=== PATIENT | female | born 2000 | race Caucasian/White ===

== ENCOUNTER 2019-11-19 13:28 | Outpatient (CLI) | payer MEDICAID, SELFPAY ==
--- NOTE | 2019-11-19 | US_ITS ---
WS: [id number] OBSTETRICAL ULTRASOUND COMPLETE HISTORY: SUPERVISION OF NORMAL FIRST IN SECOND TRIMESTER COMPARISON: None available. Single intrauterine gestation in breech presentation. Cervix is Closed and normal length. Cervical length is 3.6 cm. Normal amount of amniotic fluid surrounds the fetus. Placenta: Anterior, no previa or abruption. Placenta grade 0 Heart: 138 BPM. Four chambers are identified. Anatomy: Intracranial structures and spine are normal. Limited spine due to posterior position but no abnormality. kidneys, stomach and urinary bladder are unremarkable. Abdominal wall, thre e-vessel cord and cord insertion site are normal. 4 extremities are present. profile: Unremarkable. Gender: Female. measurements: BPD = 4.6 cm = 20w0d HC = 17.3 cm = 19w6d AC = 14.7 cm = 20w0d FL = 3.2 cm = 20w0d EFW: 325 g g., Measurements are internally concordant. AGA by ultrasound: 20 weeks 0 day JENISE by ultrasound: 04/07/2020 US/US OB >= 14 weeks fetus [id number] IMPRESSION: 1. Single intrauterine gestation of 20 weeks 0 day with an EDC of 04/07/2020. 2. Unremarkable screening survey of anatomy.
== END 2019-11-19 13:29 | disposition home or self-care (01) ==
PROVIDERS: Visit Provider Family Medicine
DX: Z76.89 Persons encountering health services in other specified circumstances (principal)

== ENCOUNTER 2020-01-31 21:30 | Outpatient (CLI) | payer MEDICAID, SELFPAY ==
[2020-01-31 21:54] VITALS: BP 134/79; PULSE 90
[2020-01-31 22:50] VITALS: TEMP 36.9
[2020-01-31 23:06] VITALS: BMI 32.1
[2020-01-31 23:24] LABS: Add Urine Culture? Yes; Bacteria Urine 1+; Bilirubin Urine Neg (NEGATIVE); Blood Urine 3+ (Negative); Glucose Urine UA Norm (Normal); Ketones Urine Negative (Negative); Leukocyte Esterase Urine 2+ (Negative); Nitrate Urine Negative (Negative); Protein Urine 2+ (Negative); RBC Urine 80-100 /hpf (0-2); Specific Gravity, Urine 1.005 (1.005-1.030); Squamous Epithelial Cell Urine 0-4 (0-5); Urine Appearance Cloudy (CLEAR); Urine Color Red (Yellow); Urobilinogen Urine Norm (Negative); pH Urine 7 (5-7)
[2020-01-31] MEDS: cephALEXin 500 mg Capsule PO (23:49)
== END 2020-01-31 23:50 | disposition home or self-care (01) ==
LOC: OPOB 21:32 → OBGYN 21:36
PROVIDERS: Visit Provider Family Medicine
DX: O26.899 Other specified pregnancy related conditions, unspecified trimester (principal); Z3A.00 Weeks of gestation of pregnancy not specified; R31.9 Hematuria, unspecified
CPT/HCPCS: 59025; 81001; 87086; 99211

== ENCOUNTER 2020-04-03 17:28 | Inpatient (IN) | payer MEDICAID, SELFPAY ==
[2020-04-03] VITALS (31 sets, daily range): BP systolic 0–149; BP diastolic 0–90; PULSE 71–107; RESP 15–18; TEMP 36.1–37.2; O2SAT 95–100; BMI 33.6
[2020-04-03] MEDS: ampicillin 2,000 MG in sodium chloride 0.9% (plus) 50 ML 100 MG IV (18:06)
[2020-04-03] MEDS: dextrose 5%-lactated ringers 1,000 ML 125 ML IV (18:07)
[2020-04-03 18:17] LABS: Basophils % 0.2 %; Eosinophils # 0.1 10^3/uL (0.0-0.8); Eosinophils % 0.7 %; Hematocrit 33.5 % (37.0-47.0); Hemoglobin 11.1 g/dL (11.5-15.3); Lymphocytes # 1.9 10^3/uL (1.5-6.5); Mean Corpuscular HGB Conc 33.1 g/dL (30.0-36.0); Mean Corpuscular Hemoglobin 28.8 pg (28.0-34.0); Mean Platelet Volume 11.1 fL (7.4-10.4); Monocytes # 0.9 10^3/uL (0.2-0.9); Monocytes % 7.1 %; Neutrophils # 9.6 10^3/uL (1.8-8.0); Neutrophils % 75.8 %; Nucleated Red Blood Cells % 0 %; Platelet Count 210 10^3/cmm (130-400); Red Blood Count 3.85 10^6/uL (4.1-5.3); Red Cell Distribution Width 13.1 % (12.1-15.1); White Blood Count 12.7 10^3/uL (4.5-13.0)
[2020-04-03] MEDS: oxytocin 30 UNIT/500 ML BAG IV (19:08)
[2020-04-03] MEDS: lactated ringers 1,000 ML 999 ML IV (19:36)
--- NOTE | 2020-04-03 19:40 | P.ANESASSM_ITS ---
Pre-Anesthetic Assessment Pre-Anesthetic Assessment: Height/Weight: Height 1.68 m Weight 94.555 kg Temp Pulse Resp BP 97.7 F 74 18 117/73 04/03/20 19:00 04/03/20 19:36 04/03/20 18:00 04/03/20 19:36 Preop Diagnosis: IUP Proposed Procedure: epidural Familial anesthetic complications: Epidural didn't work (was unilateral and wore off) Was Beta Erica taken within 24 hours: N/A Last intake: 1700 Chicken and sprite Social: Social History: Tobacco and No alcohol Exam: Pre-Anes Outpt Exam: alert, oriented x 3, clear to auscultation bilaterally and regular rate & rhythm Airway: Cervical ROM: WNL MP: 2 Dentition: Full Pulmonary: Pulmonary: None reported GI: GI: GERD Anesthetic Plan: ASA status: 2 Anesthesia: Regional (specify below) Risk of > 500 ml blood loss (7ml/kg in children): Yes, adequate IV access and fluids planned Meds/Allergies Current Medications: Current Medications Generic Name Dose Route Start Last Admin Trade Name Shiv PRN Reason Stop Dose Admin Dextrose/Lactated Ringer's 1,000 mls @ 125 m ls/hr 04/03/20 17:45 04/03/20 18:07 Dextrose 5%-Lact ated Ringers IV 125 mls/hr .Q8H ANITA Administration Ampicillin Sodium 2,000 mg/ 50 mls @ 100 mls/ hr 04/03/20 17:45 04/03/20 18:06 Sodium Chloride IV 100 mls/hr ONCE ANITA Administration Protocol Oxytocin 30 unit in 500 ml s @ 1 mls/hr 04/03/20 18:30 04/03/20 19:08 Pitocin IV 1 milliunit/min .Q24H ANITA 1 mls/hr Administration Protocol 1 MILLIUNIT/MIN PFSH Anesthesia Female Reproductive History: : 2 Data Anesthesia CBC & Chem 7: 04/03/20 17:45 Other Labs: Laboratory Results - last 48 hr 04/03/20 17:45 WBC 12.7 RBC 3.85 L Hgb 11.1 L Hct 33.5 L MCV 87.0 MCH 28.8 MCHC 33.1 RDW 13.1 Plt Count 210 MPV 11.1 H Neut % (Auto) 75.8 Lymph % (Auto) 15.0 [place] % (Auto) 7.1 Eos % (Auto) 0.7 Baso % (Auto) 0.2 Neut # (Auto) 9.6 H Lymph # (Auto) 1.9 [place] # (Auto) 0.9 Eos # (Auto) 0.1 Baso # (Auto) 0.0 Nucleated RBC % (auto) 0 Nucleated RBCs # 0.0 Cardiac Studies: No Data to Display
--- NOTE | 2020-04-03 21:06 | PC.NURSE ---
Roxana cornelius, RN calling anesthesia and warehouse examiner advising we are coming down to main OR for STAT emergency due to prolapsed cord, our OB OR is currently dirty from previous case.
[2020-04-03] MEDS: ketorolac 30 mg/mL INJ IVP (22:25)
--- NOTE | 2020-04-03 23:03 | P.OP_ITS ---
Operative Report Date of procedure: April 03, 2020 Pre-op Diagnosis: 19-year-old 2 at 39 weeks estimated gestational age with cord prolapse Post-op diagnosis: same Procedure Done: Stat low-transverse section Specimens removed/disposition: 1. Female with a weight of 6 pounds 2 ounces and Apgars of 7 and 9 Pathology: none sent Surgeon: Dell Hammonds Anesthesia: General Estimated blood loss (mL): 1,200 Complications: None Condition: stable Disposition: floor (OB) Brief History: Referred history and physical Procedure: The patient was brought back to the operating room where she was prepped and draped in usual sterile fashion. She was then placed under general anesthesia. We were ready to immediately start cutting as soon as anesthesia was initiated. A lower transverse skin incision was then made with a #10 blade. I then dissected down to the underlying subcutaneous tissue until arriving at the prerectal fascia. The fascia was then nicked with the scalpel bilaterally. The fascial incisions were then carried laterally with Miller scissors. Attention was then turned to the superior aspect of the incision which was grasped with kochers and tented up away from the underlying rectus abdominis muscles. The muscles were then dissected away from the fascia man ually, and later with Miller scissors. There was enough space to enter the peritoneum so I did not dissect the fascia away from the rectus abdominis muscles on the inferior side of the incision. The rectus abdominis muscles were then spread manually. The peritoneum was entered manually. Excellent visualization of the uterus was noted. A lower transverse uterine incision was then made with a #10 blade. Upon arriving at the intrauterine cavity, the uterine incision was then extended manually. The infant was noted to be in vertex position. The baby was delivered without difficulty. After delivery of the head, the mouth and nose were suctioned at the site of the incision. There was no meconium. There was no nuchal cord. The remainder of the body was then delivered and placed on the abdomen. The cord was cut and clamped. The baby was then handed to the waiting nurse. The placenta was removed intact. The uterus was externalized. The intrauterine cavity was cleansed of any remaining debris. The uterine incision was reapproximated in 2 layers. The first layer was performed with 0 Vicryl in a running locked stitch. The second layer was an imbricating stitch also using 0 Vicryl. The uterus was replaced into the abdomen. The peritoneum was then irrigated with warm saline. I reexamined the uterine incision and found it to be hemostatic. The rectus abdominis muscles were then reapproximated using 0 Vicryl in a running stitch. The fascia was then reapproximated using 0 Vicryl in running stitch. The subcutaneous tissue was then reapproximated using 0 Vicryl in a running stitch. The skin was reapproximated using 4-0 Vicryl in a running subcuticular stitch.. The strips were placed using benzoin A sterile dressing was placed. All counts were correct x2. Both the mother and baby were in stable condition.
--- NOTE | 2020-04-03 23:16 | PM.OBGYHP ---
Providers/Chief Complaint Admitting Physician: Dell Hammonds MD Primary Care Provider: Dell Hammonds MD Chief Complaint: LEAKING FLUID HPI RN WELLNESS History of Present Illness Jena Perea is a 19 year old 2 para 1-0-0-1 female at 39 weeks and 4 days estimated gestational age who presented to the hospital with spontaneous rupture of membranes. Initially she was found to be about 3 cm dilated and 70% effaced. She was found to be grossly ruptured. She was placed on Pitocin. And she had a long deceleration. After stopping the Pitocin the baby once again had moderate variability with accelerations. Later the baby had a deceleration, and after checking the nurses noted that there was a cord prolapse. As result I was contacted, and a stat was called. The OR upstairs was being used, so we went to the downstairs OR. The patient's had otherwise been fairly unremarkable. Her labs have been within normal limits. Her blood type was a positive. Her hepatitis C hepatitis B and HIV were all negative. Present Details : 2 Para: 1 Labs Rubella: Immune RPR: Negative GBS: Positive Review of Systems General: Reports: 10 or more systems reviewed and unremarkable except in HPI and below and Other (I was unable to obtain a review of systems until after the since she was anesthetized soon as I entered the OR.) Const: Reports: fatigue; Denies: fever(s) Eyes: Denies: change in vision Card: Denies: chest pain [place]/Lymph: Denies: easy bruising Medications/Allergies Home Medications Medication Instructions Recorded Confirmed Last Taken Type Vitamin 1 tab PO DAILY 01/31/20 04/03/20 04/03/20 10:00 History 1 TAB fluoxetine 10 mg PO DAILY 04/03/20 04/03/20 04/03/20 10:00 History 10 MG ibuprofen 800 mg PO TID #30 tab 04/05/20 Unknown Rx oxycodone-acetaminophen 1 - 2 tab PO Q6H PRN #28 tab 04/05/20 Unknown Rx oxycodone-acetaminophen [Percocet] 1 tab PO Q6H PRN #20 tab 04/05/20 Unknown Rx Allergies Allergy/AdvReac Type Severity Reaction Status Date / Time No Known Allergies Allergy Verified 02/01/20 03:00 History History Other History: The patient had a previous spontaneous vaginal delivery without complications in 2017 Vitals/I&O/Wt Last Vital Signs Temp 97.7 F 04/03/20 19:00 Pulse 107 H 04/03/20 21:05 Resp 18 04/03/20 18:00 BP 149/90 04/03/20 21:05 04/03/20 04/03/20 04/04/20 14:59 22:59 06:59 Intake Total 50.567 / 50.567 Balance 50.567 / 50.567 Weight last 48 hrs Weight 208 lb 7.337 oz Physical Exam Narrative: EXAM NARRATIVE: The patient was examined post Const: COMMON NORMALS: alert HENMT: COMMON NORMALS: moist oral mucous membranes HEAD & SCALP: normal to inspection Chest: COMMONS NORMALS: normal inspection of the chest Resp: AUSCULTATION: clear to auscultation bilaterally Cardio: COMMON NORMALS: regular rate and regular rhythm RATE: regular rate RHYTHM: regular rhythm GI: INSPECTION: Yes normal to inspection Extremity: COMMON NORMALS: normal to inspection GENERAL: Yes edema (Trace) Neuro: COMMON NORMALS: patient oriented x3, moves all extremities and no sensory deficits noted SENSORIUM/ORIENTATION: Yes alert Psych: COMMON NORMALS: mental status grossly normal Skin: COMMON NORMALS: no rashes or lesions noted GENERAL SKIN EXAM: no rashes or lesions noted Data : 04/04/20 10:25 A&P Assessment and plan (1) 39 weeks gestation of : Status: Resolved (2) Umbilical cord prolapse: Status: Resolved Attestations Medical Necessity Statement*: I anticipate the patient will require routine post care. Coding Level of Care Code Acute Bath Mix Operator for [facility] [place] Fwd Exam Comprehensive Diagnoses 39 weeks gestation of Z3A.39 Umbilical cord prolapse O69.0XX0
[2020-04-04] VITALS (13 sets, daily range): BP systolic 95–119; BP diastolic 59–76; PULSE 69–98; RESP 15–18; TEMP 36.7–36.8; O2SAT 93–99
[2020-04-04] MEDS: ketorolac 30 mg/mL INJ IVP ×3 (06:23→18:22)
--- NOTE | 2020-04-04 07:07 | P.PN_ITS ---
FLEET ADMINISTRATOR Subjective Subjective: Interval history: The patient is doing well. Her bleeding has been within normal limits. Her pain is been adequately controlled. There have been no concerns. Labor: Station: -2 Amniotic Membrane Status: Leaking Monitor Mode: External Contraction Pattern: Irregular Status: Category ll Vitals/I&O/Wt Last Vital Signs Temp 98.1 F 04/04/20 03:15 Pulse 90 04/04/20 06:32 Resp 16 04/04/20 06:32 BP 108/67 04/04/20 06:32 Pulse Ox 96 04/04/20 06:32 04/03/20 04/04/20 04/04/20 22:59 06:59 14:59 Intake Total 248.484 / 786.320 5738 / 2548.484 Output Total 200 / 200 1750 / 1950 Balance 48.484 / 48.484 550 / 598.484 Weight last 48 hrs Weight 208 lb 7.337 oz Physical Exam Narrative: EXAM NARRATIVE: She is in no acute distress Lungs are clear auscultation bilaterally Her heart has a regular rate and rhythm Her fundus is below the umbilicus and firm Her dressing is clean, dry and intact Her extremities have trace edema Data : 04/03/20 17:45 Attestations Medical Necessity Statement*: Routine and post care Coding Level of Care Code Acute Cytotechnologist/Histotechnologist for Haritha Foster
[2020-04-04] MEDS: dextrose 5%-lactated ringers 1,000 ML 125 ML IV (08:00)
[2020-04-04] MEDS: prenatal vitamin Capsule 1 CAP PO (08:30)
[2020-04-04] MEDS: docusate sodium 100 mg Capsule PO ×2 (08:30→18:22)
[2020-04-04] MEDS: ferrous sulfate EC 325 mg Tablet PO ×2 (08:30→18:25)
[2020-04-04] MEDS: HYDROcodone-acetaminophen 5-325 mg Tablet PO ×3 (08:55→22:22)
[2020-04-04] MEDS: fluoxetine 10 mg Capsule PO (08:56)
[2020-04-04] MEDS: sodium chloride 0.9% 500 ML 999 ML IV (09:06)
[2020-04-04 10:36] LABS: Hematocrit 26.6 % (37.0-47.0); Hemoglobin 8.3 g/dL (11.5-15.3); Mean Corpuscular HGB Conc 31.2 g/dL (30.0-36.0); Mean Corpuscular Hemoglobin 28.1 pg (28.0-34.0); Mean Corpuscular Volume 90.2 fL (81-99); Mean Platelet Volume 10.6 fL (7.4-10.4); Platelet Count 172 10^3/cmm (130-400); Red Blood Count 2.95 10^6/uL (4.1-5.3); Red Cell Distribution Width 13.3 % (12.1-15.1); White Blood Count 13.8 10^3/uL (4.5-13.0)
--- NOTE | 2020-04-04 16:40 | PC.NURSE ---
Redd catheter removed at this time. 10 mL removed from redd bulb, pt tolerated well. Catheter intact.
[2020-04-05 04:00] VITALS: BP 100/66; PULSE 82; RESP 16
[2020-04-05] MEDS: HYDROcodone-acetaminophen 5-325 mg Tablet PO (04:40)
[2020-04-05 08:37] VITALS: RESP 22
[2020-04-05] MEDS: fluoxetine 10 mg Capsule PO (08:37)
[2020-04-05] MEDS: oxyCODONE-APAP 5-325 mg Tablet PO (08:37)
[2020-04-05] MEDS: prenatal vitamin Capsule 1 CAP PO (08:38)
[2020-04-05] MEDS: docusate sodium 100 mg Capsule PO (08:38)
[2020-04-05] MEDS: ferrous sulfate EC 325 mg Tablet PO (08:38)
[2020-04-05] MEDS: dextrose 5%-lactated ringers 1,000 ML 125 ML IV (08:44)
[2020-04-05 09:57] VITALS: BP 116/70; PULSE 86; RESP 16; TEMP 36.6; O2SAT 98
[2020-04-05 13:30] VITALS: BP 117/73; PULSE 86; RESP 16; TEMP 36.9; O2SAT 98
[2020-04-05 13:40] VITALS: BP 117/73; PULSE 86; RESP 16; TEMP 36.9; O2SAT 98
--- NOTE | 2020-04-06 07:38 | P.DS_ITS ---
Discharge Providers RUBBER BALL FINISHER Date of Admission: 04/03/20 17:28 Date of Discharge: 04/05/20 Attending Provider at Admission: Dell Hammonds MD Attending Provider at Discharge: Dell Hammonds MD Primary Care Provider: Dell Hammonds MD Diagnoses at Discharge Discharge Diagnosis (1) 39 weeks gestation of : Status: Resolved (2) Umbilical cord prolapse: Status: Resolved Reason for Visit Reason for Visit: LEAKING FLUID Hospital Course Hospital Course: The patient presented to the hospital at 39 weeks estimated gestational age with spontaneous rupture of membranes. During labor process, she was checked and found to have a prolapsed cord. As result a stat section was performed. Her course was also unremarkable. Her bleeding was within normal limits. Her pain was well controlled. She passed gas, and tolerated diet well. Information Peripartum Data: Infant Delivery Method: Section Physical Exam Narrative: EXAM NARRATIVE: She is in no acute distress Lungs are clear auscultation bilaterally Her heart has a regular rate and rhythm Her fundus is below the umbilicus and firm Her dressing is clean, dry and intact Her extremities have trace edema Urinary Catheter Management^: [place]: Cath Placed During This Visit: yes, but has since been removed by the nurse Reason for Continuing Indwelling Catheter: Required Immobilization for Trauma or Surgery or Anesthesia Urinary Catheter Date of Insertion: 04/03/20 Urinary Catheter Time of Insertion: 22:08 Date Urinary Catheter Removed: 04/04/20 Time Urinary Catheter Discontinued: 16:40 Discharge Data Vitals: Last Vital Signs Temp 98.4 F 04/05/20 13:40 Pulse 86 04/05/20 13:40 Resp 16 04/05/20 13:40 BP 117/73 04/05/20 13:40 Pulse Ox 98 04/05/20 13:40 Discharge Plan Discharge Patient Disposition: Home, Self-Care Condition: Stable Prescriptions: New oxycodone-acetaminophen 5-325 mg Tablet 1 - 2 tab PO Q6H PRN (Reason: Moderate To Severe Pain) Qty: 28 RF: 0 Percocet 5-325 mg tablet 1 tab PO Q6H PRN (Reason: pain) Qty: 20 RF: 0 ibuprofen 800 mg tablet 800 mg PO TID Qty: 30 RF: 0 Continued fluoxetine 10 mg tablet 10 mg PO DAILY RF: 0 Vitamin 27 mg iron- 800 mcg Tablet 1 tab PO DAILY RF: 0 Discharge Orders: Discharge Order (Routine); Ordered 04/05/20 Ordered By: Dell Hammonds Referrals: Dell Hammonds MD [Primary Care Provider] - 04/07/20 8:45 am (* Your incision check is on 04/07/2020 at 8:45am. ) Discharge Diet: Usual diet Discharge Activity: Limit activity as instructed Patient Instructions: Ibuprofen (By mouth), Oxycodone/Acetaminophen (By mouth), OB Discharge Report, OB Food/Drug Interaction Guide, OB Home Care, OB Proud Parent Packet, OB Vaginal Deliveries Discharge Date/Time: 04/05/20 13:40 Discharge Attestations RUBBER BALL FINISHER Time Spent in Discharge Care*: less than 30 min Coding Level of Care Code Acute Eyeletter for Chg Fwd Diagnoses 39 weeks gestation of Z3A.39 Umbilical cord prolapse O69.0XX0
== END 2020-04-05 13:40 | disposition home or self-care (01) | DRG 788 ==
PROVIDERS: Admitting Provider Family Medicine; PCP Family Medicine; Visit Provider Family Medicine
PROC: 10D00Z1 Extraction of Products of Conception, Low, Open Approach (ICD-10-PCS; CPT 59514; principal; 2020-04-03 21:15)
DX: O42.02 Full-term premature rupture of membranes, onset of labor within 24 hours of rupture (principal); O69.0XX0 Labor and delivery complicated by prolapse of cord, not applicable or unspecified; Z3A.39 39 weeks gestation of pregnancy; Z37.0 Single live birth; O76 Abnormality in fetal heart rate and rhythm complicating labor and delivery
CPT/HCPCS: 12345; 36415; 51702; 59025; 59409; 83986; 85025; 85027; 96374; 96375; 99211; G0378; G0379; J0290; J1885; J2270; J2590; J2704; J3010; J7040

== ENCOUNTER 2020-04-12 05:27 | Emergency (ER) | payer MEDICAID, SELFPAY ==
[2020-04-12 05:38] VITALS: BP 110/71; PULSE 94; RESP 16; TEMP 37.1; O2SAT 97; BMI 30.7
--- NOTE | 2020-04-12 05:52 | CTR_ITS ---
PROCEDURE INFORMATION: Exam: CT Abdomen And Pelvis With Contrast Exam date and time: 04/12/2020 6:15 AM Age: 19 years old Clinical indication: Prior surgery; Surgery date: <1 month; Patient HX: Drainage from incision this am, 8 days ago; Additional info: Drainage from c section TECHNIQUE: Imaging protocol: Computed tomography of the abdomen and pelvis with intravenous contrast. Radiation optimization: All CT scans at this facility use at least one of these dose optimization techniques: automated exposure control; mA and/or kV adjustment per patient size (includes targeted exams where dose is matched to clinical indication); or iterative reconstruction. Contrast material: OMNIPAQUE 300; Contrast volume: 95 ml; Contrast route: INTRAVENOUS (IV); COMPARISON: No relevant prior studies available. RADIATION DOSE METRICS: Total DLP (mGy-cm): 1469.17 FINDINGS: Pleural space: Trace basilar airspace disease and small right pleural effusion. Liver: No focal hepatic mass. Gallbladder and bile ducts: No cholelithiasis or biliary ductal dilatation. Pancreas: No pancreatic mass or ductal dilatation. Spleen: Granulomata in the enlarged spleen measuring 13.2 cm in length. Adrenals: Unremarkable adrenals. Kidneys and ureters: Normal renal morphology. No hydronephrosis. Stomach and bowel: No significant small bowel dilatation. Prominent stool. Diverticula, without pericolonic inflammation. Appendix: No acute appendicitis. Intraperitoneal space: Trace fluid in the cul-de-sac. Vasculature: Normal caliber of the abdominal aorta. Lymph nodes: Reactive inguinal lymph nodes. Bladder: Normal bladder morphology. Reproductive: Indwelling tampon. Enlarged uterus with a small focus of endometrial air. Bones/joints: Schmorl's nodes prior Soft tissues: Skin thickening, subcutaneous emphysema, and prominent infiltration of subcutaneous fat in the anterior pelvis, consistent with cellulitis in the appropriate clinical setting. CT/CT abdomen pelvis w con* [id number] IMPRESSION: 1. Skin thickening, subcutaneous emphysema, and prominent infiltration of subcutaneous fat in the anterior pelvis, consistent with cellulitis in the appropriate clinical setting. 2. Additional findings as described above. Radiation Dose CTDIVOL = (mGy): DLP = 1469.17 (mGy-cm)
--- NOTE | 2020-04-12 05:54 | ED_ITS ---
HPI - General Adult General: Chief complaint: General Medical Stated complaint: incision issues Time Seen by Provider: 04/12/20 05:51 Source: patient Mode of arrival: ambulatory Limitations: no limitations History of Present Illness: HPI narrative: 19-year-old female who had a C- section 8 days ago states she has had large amount of drainage that is purulent from the incision. States it is painful and is sharp in nature and rates it a 6 out of 10. She denies any fever. She denies any worsening or improving factors. She has not seen her Associated symptoms: Deny chest pain, dyspnea, headache(s) or rash Review of Systems Const: Denies: fever(s), chills, body aches or change in appetite Eyes: Denies: blurry vision or eye discomfort ENMT: Denies: throat pain or dental pain Card: Denies: chest pain Resp: Denies: dyspnea GI: Reports: abdominal pain : Denies: dysuria Musc: Denies: neck pain or back pain Skin/Breast: Denies: rash Neuro: Denies: headache(s) Psych: Denies: depression Ded[place]/Lymph: Denies: easy bruising All/Imm: Denies: urticaria PFSH ED PFSH: Social History Smoking and tobacco status: current every day smoker Physical Exam Const: COMMON NORMALS: no acute distress, patient oriented x3 and healthy appearing HENMT: COMMON NORMALS: normocephalic and atraumatic HEAD & SCALP: normocephalic and atraumatic Eye: COMMON NORMALS: Equal, round and reactive pupils present and EOMs intact bilaterally PUPIL: Yes Equal, round and reactive pupils present Neck/C-Spine: COMMON NORMALS: full ROM and supple Chest: COMMONS NORMALS: normal inspection of the chest and normal palpation of entire chest wall Resp: COMMON NORMALS: normal respiratory effort, No retractions, No use of accessory muscles and clear to auscultation bilaterally AUSCULTATION: clear to auscultation bilaterally Cardio: COMMON NORMALS: regular rate, regular rhythm and No murmurs present (Cardio) RATE: regular rate RHYTHM: regular rhythm GI: COMMON NORMALS: Soft to palpation and no masses PALPATION: Yes Soft to palpation OTHER: Patient has purulent drainage from scar with tenderness. Extremity: COMMON NORMALS: normal to inspection and full ROM Neuro: COMMON NORMALS: patient oriented x3, moves all extremities and no focal motor deficits Psych: COMMON NORMALS: mental status grossly normal, Normal thought process present and cooperative THOUGHT PROCESS: Normal thought process present Skin: COMMON NORMALS: no rashes or lesions noted and no wounds GENERAL SKIN EXAM: no rashes or lesions noted Course Vital Signs: Vital signs: Vital Signs Temperature 98.7 F 04/12/20 05:38 Pulse Rate 74 04/12/20 07:28 Respiratory Rate 16 04/12/20 06:08 Blood Pressure 118/74 04/12/20 07:28 Pulse Oximetry 98 04/12/20 07:28 MDM - General Adult MDM Narrative: Medical decision making narrative: Love presents here with drainage from her incision site and CT showing cellulitis. Patient's white cell count here is normal. Patient given IV vancomycin and I spoke to Dr. Hammonds who is going to see patient tomorrow. Will place patient on Keflex and she is to return to ER if she has any worsening. Patient understands and agrees to the plan. Lab Data: Labs: Lab Results 04/12/20 04/12/20 Range/Units 06:00 06:00 WBC 11.9 (4.5-13.0) 10^3/ uL RBC 2.71 L (4.1-5.3) 10^6/u L Hgb 7.5 L (11.5-15.3) g/dL Hct 24.0 L (37.0-47.0) % MCV 88.6 (81-99) fL MCH 27.7 L (28.0-34.0) pg MCHC 31.3 (30.0-36.0) g/dL RDW 13.3 (12.1-15.1) % Plt Count 448 H (130-400) 10^3/c mm MPV 9.4 (7.4-10.4) fL Neut % (Auto) 75.6 % Lymph % (Auto) 13.9 % [place] % (Auto) 7.1 % Eos % (Auto) 1.9 % Baso % (Auto) 0.2 % Neut # (Auto) 9.0 H (1.8-8.0) 10^3/u L Lymph # (Auto) 1.7 (1.5-6.5) 10^3/u L [place] # (Auto) 0.9 (0.2-0.9) 10^3/u L Eos # (Auto) 0.2 (0.0-0.8) 10^3/u L Baso # (Auto) 0.0 (0.0-0.1) 10^3/u L Nucleated RBC % (a uto) 0.2 % Nucleated RBCs # 0.0 /100WBC Sodium 135 L (136-145) mmol/L Potassium 4.0 (3.5-5.1) mmol/L Chloride 97 L (98-107) mmol/L Carbon Dioxide 24 (22-29) mmol/L Anion Gap 18.0 (5-19) BUN 11 (6-20) mg/dL Creatinine 0.6 (0.5-0.9) mg/dL GFR Calculation 127.5 (90-130) mL/min Glucose 90 (65-115) mg/dL Calculated Osmolal ity 276 L (285-295) mOsm/k g Calcium 8.6 (8.5-10.5) mg/dL Total Bilirubin 0.2 (0.15-1.2) mg/dL AST 16 (0-32) U/L ALT 12 (0-33) U/L Alkaline Phosphata se 96 (35-105) IU/L Total Protein 6.3 L (6.6-8.7) g/dL Albumin 2.8 L (3.5-5.2) g/dL Globulin 3.5 (1.3-4.6) g/dL Imaging Data^: CT Abd/Pel: Attestation: I personally reviewed and interpreted this imaging study as follows: Radiologist's impression: This case had a high probability of a clinically significant, sudden, or life threatening deterioration of this patient's condition which required my full and direct attention, intervention and personal management. Discharge Plan Discharge Patient Disposition: Home, Self-Care Clinical Impression: Cellulitis Qualifiers: Site of cellulitis: trunk Site of cellulitis of trunk: abdominal wall Qualified Code(s): L03.311 - Cellulitis of abdominal wall Condition: Stable Prescriptions: [place] 5-325 mg tablet 1 tab PO Q6H PRN (Reason: pain) Qty: 14 RF: 0 Keflex 500 mg capsule 500 mg PO Q6H 7 Days Qty: 28 RF: 0 No Action fluoxetine 10 mg tablet 10 mg PO DAILY RF: 0 oxycodone-acetaminophen 5-325 mg Tablet 1 - 2 tab PO Q6H PRN (Reason: Moderate To Severe Pain) Qty: 28 RF: 0 Percocet 5-325 mg tablet 1 tab PO Q6H PRN (Reason: pain) Qty: 20 RF: 0 ibuprofen 800 mg tablet 800 mg PO TID Qty: 30 RF: 0 Vitamin 27 mg iron- 800 mcg Tablet 1 tab PO DAILY RF: 0 Discharge Orders: Discharge Order (Routine); Ordered 04/12/20 Ordered By: Leann Garner Referrals: Dell Hammonds MD [Primary Care Provider] - 1-3 days Discharge Diet: Advance as tolerated Discharge Activity: Resume usual activity Patient Instructions: Cellulitis (ED) Coding Level of Care Code ED Facility Coordinator for Haritha Fwd Exam Comprehensive
[2020-04-12 06:08] VITALS: PULSE 79; RESP 16; O2SAT 98
[2020-04-12 06:12] VITALS: BP 121/69
[2020-04-12] MEDS: sodium chloride 0.9% 1,000 ML 999 ML IV (06:14)
[2020-04-12 06:19] LABS: Basophils % 0.2 %; Eosinophils # 0.2 10^3/uL (0.0-0.8); Eosinophils % 1.9 %; Hemoglobin 7.5 g/dL (11.5-15.3); Lymphocytes # 1.7 10^3/uL (1.5-6.5); Lymphocytes % 13.9 %; Mean Corpuscular HGB Conc 31.3 g/dL (30.0-36.0); Mean Corpuscular Hemoglobin 27.7 pg (28.0-34.0); Mean Corpuscular Volume 88.6 fL (81-99); Mean Platelet Volume 9.4 fL (7.4-10.4); Monocytes # 0.9 10^3/uL (0.2-0.9); Monocytes % 7.1 %; Neutrophils % 75.6 %; Nucleated Red Blood Cells % 0.2 %; Platelet Count 448 10^3/cmm (130-400); Red Blood Count 2.71 10^6/uL (4.1-5.3); Red Cell Distribution Width 13.3 % (12.1-15.1); White Blood Count 11.9 10^3/uL (4.5-13.0)
[2020-04-12] MEDS: iohexol 300 mg/mL 100 mL Btl IV (06:29)
[2020-04-12 06:33] LABS: Alanine Aminotransferase 12 U/L (0-33); Albumin Level 2.8 g/dL (3.5-5.2); Alkaline Phosphatase 96 IU/L (35-105); Aspartate Amino Transferase 16 U/L (0-32); Blood Urea Nitrogen 11 mg/dL (6-20); Calcium 8.6 mg/dL (8.5-10.5); Carbon Dioxide 24 mmol/L (22-29); Chloride 97 mmol/L (98-107); Globulin 3.5 g/dL (1.3-4.6); Glomerular Filtration Rate 127.5 mL/min (90-130); Glucose 90 mg/dL (65-115); Osmolality Calculated 276 mOsm/kg (285-295); Sodium 135 mmol/L (136-145); Total Bilirubin 0.2 mg/dL (0.15-1.2); Total Protein 6.3 g/dL (6.6-8.7)
--- NOTE | 2020-04-12 06:38 | PC.NURSE ---
Pt. to CT and back, via stretcher, with tech.
--- NOTE | 2020-04-12 07:05 | PC.NURSE ---
Shift change report taken.
[2020-04-12] MEDS: vancomycin 1,000 MG in sodium chloride 0.9% 250 ML 250 MG IV (07:27)
[2020-04-12 07:28] VITALS: BP 118/74; PULSE 74; O2SAT 98
[2020-04-12 08:36] VITALS: BP 124/68; PULSE 86; O2SAT 95
--- NOTE | 2020-04-12 08:45 | DCPLANNER ---
senior construction manager had a message to schedule a follow up appointment for patient with primary care physician. senior construction manager called [facility], a follow up appointment was scheduled for Saturday, April 13, 2020 at 2;15. senior construction manager called patient, unable to speak with patient at this time, a voicemail was left for patient to return community case manager phone call.
--- NOTE | 2020-04-13 08:31 | DCPLANNER ---
operations and maintenance manager called [phone] was told that patient no longer lives there and did not have another number for patient. operations and [place] [facility] [place], and not able to speak with anyone and a voicemail box was not set up. operations and maintenance manager called the patients mothers phone number at [phone] person not available at this time, could not leave voicemail. Called [phone] phone number was not is service, and [phone] no answer and voicemail box was full. operations and maintenance manager [place] [facility].
== END 2020-04-12 08:36 | disposition home or self-care (01) ==
PROVIDERS: Emergency Provider Emergency Medicine; PCP Family Medicine
DX: L03.311 Cellulitis of abdominal wall (principal); F17.210 Nicotine dependence, cigarettes, uncomplicated
CPT/HCPCS: 12345; 74177; 80053; 85025; 87070; 96360; 96365; 99283; J3370; J7030; J7050; Q9967

== ENCOUNTER → 2021-09-11 08:57 | Outpatient (BNVA) | payer MEDICAID, SELFPAY | PROVIDERS: PCP Family Medicine; Visit Provider Obstetrics & Gynecology | DX: Z34.90 Encounter for supervision of normal pregnancy, unspecified, unspecified trimester (principal) | CPT/HCPCS: 80307; 81000; 82950; 84443; 85025; 86592; 86762; 86787; 86803; 86850; 86900; 87086; 87340; 87806 ==

== ENCOUNTER → 2021-09-21 08:42 | Outpatient (BNVA) | payer MEDICAID, SELFPAY | PROVIDERS: PCP Family Medicine; Visit Provider Obstetrics & Gynecology | DX: Z34.80 Encounter for supervision of other normal pregnancy, unspecified trimester (principal) | CPT/HCPCS: 81000; 87086 ==

== ENCOUNTER → 2021-10-02 15:22 | Outpatient (BNVA) | payer MEDICAID, SELFPAY | PROVIDERS: PCP Family Medicine; Visit Provider Obstetrics & Gynecology | DX: Z34.80 Encounter for supervision of other normal pregnancy, unspecified trimester (principal) | CPT/HCPCS: 81000; 87086 ==

== ENCOUNTER → 2021-10-16 15:41 | Outpatient (BNVA) | payer MEDICAID, SELFPAY | PROVIDERS: PCP Family Medicine; Visit Provider Obstetrics & Gynecology | DX: Z34.80 Encounter for supervision of other normal pregnancy, unspecified trimester (principal) | CPT/HCPCS: 81000; 87081 ==

== ENCOUNTER → 2021-10-23 12:53 | Outpatient (BNVA) | payer MEDICAID, SELFPAY | PROVIDERS: PCP Family Medicine; Visit Provider Obstetrics & Gynecology | DX: Z34.90 Encounter for supervision of normal pregnancy, unspecified, unspecified trimester (principal) | CPT/HCPCS: 81000; 87086 ==

== ENCOUNTER → 2021-10-30 14:47 | Outpatient (BNVA) | payer MEDICAID, SELFPAY | PROVIDERS: Visit Provider Obstetrics & Gynecology | DX: O34.219 Maternal care for unspecified type scar from previous cesarean delivery (principal) | CPT/HCPCS: 87635 ==

== ENCOUNTER 2021-10-31 23:40 | Inpatient (IN) | payer MEDICAID, SELFPAY ==
[2021-10-31 23:10] VITALS: BMI 31.4
[2021-10-31 23:13] VITALS: RESP 16
[2021-10-31 23:14] VITALS: BP 131/86; PULSE 97
[2021-10-31 23:21] VITALS: TEMP 37.2
[2021-10-31 23:26] LABS: Actim Prom Positive
[2021-10-31 23:36] VITALS: BP 136/81; PULSE 85
[2021-10-31 23:36] LABS: Amphetamines Screen Urine Negative (Negative); Barbiturates Screen Urine Negative (Negative); Benzodiazepines Screen Urine Negative (Negative); Cocaine Screen Urine Negative (Negative); Opiate Screen Urine Negative (Negative); PCP Screen Urine Negative (Negative); THC Screen Urine Positive (Negative)
[2021-10-31 23:50] LABS: Basophils % 0.3 %; Eosinophils % 0.1 %; Hematocrit 33.1 % (37.0-47.0); Hemoglobin 10.6 g/dL (11.5-15.3); Lymphocytes # 2.4 10^3/uL (0.8-4.8); Lymphocytes % 16.9 %; Mean Corpuscular Hemoglobin 25.5 pg (28.0-34.0); Mean Corpuscular Volume 79.6 fl (81-99); Mean Platelet Volume 10.8 fL (7.4-10.4); Monocytes # 0.8 10^3/uL (0.2-0.9); Monocytes % 5.8 %; Neutrophils # 10.87 10^3/uL (1.8-7.7); Neutrophils % 76.1 %; Nucleated Red Blood Cells % 0 %; Platelet Count 215 10^3/cmm (130-400); Red Blood Count 4.16 10^6/uL (4.1-5.3); Red Cell Distribution Width 13.7 % (12.1-15.1); White Blood Count 14.3 10^3/uL (4.0-10.0)
--- NOTE | 2021-10-31 23:51 | PM.OPHPUD ---
Labor & Delivery H&P Update Date of Procedure: October 31, 2021 Date H&P Performed: 10/30/21 H&P update information: I have reviewed H&P completed within last 30 days and I have examined patient prior to procedure Changes to previous documentation: cervix is now 2/-1 Desires repeat Admission Diagnosis: Preop diagnosis: @ 38w3d, active labor, SROM Related Problem List Diagnoses (1) Previous delivery affecting : (2) Late care: (3) Tobacco use: (4) GBS (group B streptococcus) UTI complicating : (5) Maternal varicella, non-immune: (6) Supervision of normal : (7) IUGR (intrauterine growth restriction):
[2021-10-31] MEDS: lactated ringers 1,000 ML 999 ML IV (23:56)
[2021-11-01] VITALS (16 sets, daily range): BP systolic 99–132; BP diastolic 7–87; PULSE 64–80; RESP 16–18; TEMP 36.4–36.9; O2SAT 92–99
[2021-11-01] MEDS: ampicillin 2,000 MG in sodium chloride 0.9% (plus) 50 ML 100 MG IV (00:23)
[2021-11-01] MEDS: citric acid-sodium citrate 30 mL UDC PO ×2 (00:24→00:27)
[2021-11-01] MEDS: famotidine 20 mg/2 mL INJ IVP (00:27)
[2021-11-01] MEDS: metoclopramide 5 mg/mL SDV 2 mL 10 MG IVP (00:27)
--- NOTE | 2021-11-01 01:48 | P.OP_ITS ---
Operative Report Date of procedure: November 01, 2021 Pre-op Diagnosis: @ 38w3d, active labor, SROM Post-op diagnosis: same Post-op Findings: term IUGR female in the cephalic presentation Procedure Done: repeat Specimens removed/disposition: placenta Pathology: none sent Surgeon: Stacie Pagan Anesthesia: Other (spinal) Estimated blood loss (mL): 200 IV fluids (mL): 700 Urine output (mL): 200 Complications: none Condition: stable Disposition: floor Brief History: The patient presented to labor and delivery with SROM at 9:30 and active labor. She desired to have a repeat . Procedure: The patient was taken to the operating room where spinal anesthesia was administered and found to be adequate. She was prepped and draped in the normal sterile fashion in the dorsal supine position with a leftward tilt. A Pfannenstiel skin incision was made and carried down to the underlying layer of fascia. The fascia was nicked in the midline and extended laterally with the Miller scissors. The fascia was then tented up and the rectus muscles dissected off sharply. The rectus muscles were and the peritoneum entered bluntly with the digit. The peritoneal incision was extended superiorly and inferiorly with good visualization of the bladder. The Jg O retractor was placed. It was clear of any bowel or omentum. The bladder flap was created sharply with the Metzenbaum scissors. A low transverse uterine incision was made and carried down to the bag of water. The bag of water was ruptured and the uterine incision extended cephalocaudad. The scalp was grasped and brought through the incision. The nose and mouth were bulb suctioned. The shoulders and body delivered atraumatically. The baby was allowed to rest, while being dried, for 1 minute and then the cord was clamped and cut. The baby was handed to the waiting manager employee relations. The placenta was delivered by expression. The uterus was exteriorized and cleared of all clots and debris. The uterine incision was closed with 0 Vicryl in a running fashion. A second imbricating layer of 3-0 Monocryl was used to close the uterus. The bladder flap was closed with 3-0 Monocryl. There was excellent hemostasis. The Jg O retractor was removed. The uterus was returned to the abdomen. The peritoneum was closed with 3-0 Monocryl, incorporating the rectus muscle. The fascia was closed with 0 Vicryl in 2 separate sutures overlapping in the midline. The skin was closed with absorbable angelique. Apgars on baby 8 at 1 minute and 9 at 5 minutes. weight 5 pounds 4 ounces. Mother and baby were stable post delivery.
[2021-11-01] MEDS: methylergonovine 0.2 mg/mL INJ 1 mL IM (02:00)
--- NOTE | 2021-11-01 02:56 | PM.OBGYPN ---
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 Nurse reports that uterus is boggy and there is a steady blood flow. Methergine and TXA order given and I returned to examine patient. Bimanual exam shows a firm fundus and a small amount of clot expressed. Methergine had already been given and they were working on starting the TXA. I stayed with patient for about 15 minutes and the bleeding was now minimal. Order to continue pitocin for 12 hours postop. Urinary Catheter Management^: Lockhart Latex: Cath Placed During This Visit: yes, but has since been removed by the nurse Reason for Continuing Indwelling Catheter: Other Urinary Catheter Date of Insertion: 11/01/21 Urinary Catheter Time of Insertion: 00:06 Date Urinary Catheter Removed: 11/01/21 Time Urinary Catheter Discontinued: 08:50 Data : 11/01/21 12:55 11/01/21 04:20 Attestations Medical Necessity Statement*: the patient will be here two midnights Coding Level of Care Code Acute Surgical Elastic Knitter Hand Frame for Haritha Foster
[2021-11-01] MEDS: cefTRIAXone 2,000 MG in sodium chloride 0.9% (plus) 50 ML 100 MG IV (04:26)
[2021-11-01] MEDS: metroNIDAZOLE IV 500 MG/100 ML PREMIX 100 MG IV ×2 (04:30→12:46)
[2021-11-01 05:15] LABS: Anion Gap 18.8 (5-19); Blood Urea Nitrogen 7 mg/dL (6-20); Carbon Dioxide 18 mmol/L (22-29); Chloride 101 mmol/L (98-107); Glomerular Filtration Rate 199.6 mL/min (90-130); Glucose 71 mg/dL (65-115); Osmolality Calculated 274 mOsm/kg (285-295); Potassium 3.8 mmol/L (3.5-5.1); Sodium 134 mmol/L (136-145)
[2021-11-01 06:48] LABS: Hematocrit 30.9 % (37.0-47.0); Hemoglobin 9.9 g/dL (11.5-15.3); Mean Corpuscular Volume 81.1 fl (81-99); Mean Platelet Volume 10.8 fL (7.4-10.4); Platelet Count 169 10^3/cmm (130-400); Red Blood Count 3.81 10^6/uL (4.1-5.3); Red Cell Distribution Width 13.7 % (12.1-15.1); White Blood Count 16.9 10^3/uL (4.0-10.0)
--- NOTE | 2021-11-01 07:38 | PC.NURSE ---
Physician called for lab results Dr. Pagan called for Hemaglobin lab results. No new orders received at this time.
[2021-11-01] MEDS: prenatal vitamin Capsule 1 CAP PO (08:42)
[2021-11-01] MEDS: ferrous sulfate EC 325 mg Tablet PO ×2 (08:42→17:33)
[2021-11-01] MEDS: docusate sodium 100 mg Capsule PO ×2 (08:42→17:33)
[2021-11-01] MEDS: ketorolac 30 mg/mL INJ IVP (08:42)
[2021-11-01] MEDS: oxytocin 30 UNIT/500 ML BAG 125 UNIT IV ×2 (08:59→13:18)
[2021-11-01 13:04] LABS: Hematocrit 31.3 % (37.0-47.0); Hemoglobin 10.1 g/dL (11.5-15.3); Mean Corpuscular HGB Conc 32.3 g/dL (30.0-36.0); Mean Corpuscular Volume 80.7 fl (81-99); Mean Platelet Volume 10.7 fL (7.4-10.4); Platelet Count 169 10^3/cmm (130-400); Red Blood Count 3.88 10^6/uL (4.1-5.3); Red Cell Distribution Width 13.8 % (12.1-15.1); White Blood Count 11.9 10^3/uL (4.0-10.0)
[2021-11-01] MEDS: ibuprofen 800 mg tablet PO ×2 (15:09→21:02)
--- NOTE | 2021-11-01 15:14 | PM.PN ---
Vitals/I&O/Wt Last Vital Signs Temp 97.6 F 11/01/21 08:50 Pulse 72 11/01/21 08:50 Resp 18 11/01/21 08:50 BP 109/69 11/01/21 08:50 Pulse Ox 94 11/01/21 06:00 11/01/21 11/01/21 11/01/21 06:59 14:59 22:59 Intake Total 2460 / 2460 500 / 500 Output Total 700 / 700 Balance 1760 / 1760 500 / 500 Weight last 48 hrs Weight 195 lb Physical Exam Narrative: EXAM NARRATIVE: The patient is doing well this morning. she is tolerating a regular diet. She is ambulating. she has been able to urinate. Her lochia is scant. Const: COMMON NORMALS: no acute distress, patient oriented x3, no limitations, healthy appearing, alert and well nourished GENERAL APPEARANCE: cooperative, comfortable, well kempt and well developed ORIENTATION/CONSCIOUSNESS: Yes awake, Yes oriented to person, Yes oriented to place and Yes oriented to time Resp: COMMON NORMALS: normal respiratory effort EFFORT & INSPECTION: Yes able to speak in complete sentences GI: COMMON NORMALS: Soft to palpation and non-tender PALPATION: Yes Soft to palpation Extremity: COMMON NORMALS: no calf tenderness Neuro: COMMON NORMALS: patient oriented x3 SENSORIUM/ORIENTATION: Yes alert, Yes oriented to person, Yes oriented to place and Yes oriented to time Psych: COMMON NORMALS: mental status grossly normal, Normal thought process present, cooperative, normal affect and speech normal APPEARANCE: Yes grossly normal and Yes well kempt ATTITUDE: Yes calm and Yes engaged ACTIVITY/MOTOR BEHAVIOR: Yes appropriate eye contact SPEECH: Yes normal speech THOUGHT PROCESS: Normal thought process present Urinary Catheter Management^: Lockhart Latex: Cath Placed During This Visit: yes, but has since been removed by the nurse Reason for Continuing Indwelling Catheter: Other Urinary Catheter Date of Insertion: 11/01/21 Urinary Catheter Time of Insertion: 00:06 Date Urinary Catheter Removed: 11/01/21 Time Urinary Catheter Discontinued: 08:50 Data : 11/01/21 12:55 11/01/21 04:20 Attestations Medical Necessity Statement*: The patient had a early this morning. She is POD#0. doing well. Coding Level of Care Code Acute Color Making Supervisor for Haritha Foster
[2021-11-01] MEDS: metroNIDAZOLE 500 MG Tablet PO ×2 (17:33→22:38)
[2021-11-01] MEDS: nicotine 14 mg Patch 1 PATCH TRANSDERMA (21:02)
[2021-11-02 03:22] VITALS: BP 108/70; PULSE 70; TEMP 36.9; O2SAT 98
[2021-11-02] MEDS: cefTRIAXone 2,000 MG in sodium chloride 0.9% (plus) 50 ML 100 MG IV (04:08)
[2021-11-02] MEDS: dextrose 5%-lactated ringers 1,000 ML 125 ML IV (04:12)
[2021-11-02] MEDS: HYDROcodone-acetaminophen 5-325 mg Tablet PO (04:23)
[2021-11-02 04:31] LABS: Basophils % 0.3 %; Eosinophils # 0.1 10^3/uL (0.0-0.8); Eosinophils % 1.1 %; Hematocrit 28.4 % (37.0-47.0); Lymphocytes # 2.5 10^3/uL (0.8-4.8); Lymphocytes % 21.6 %; Mean Corpuscular HGB Conc 31.7 g/dL (30.0-36.0); Mean Corpuscular Hemoglobin 25.6 pg (28.0-34.0); Mean Corpuscular Volume 80.7 fl (81-99); Mean Platelet Volume 10.7 fL (7.4-10.4); Monocytes # 0.7 10^3/uL (0.2-0.9); Monocytes % 6.4 %; Neutrophils # 7.96 10^3/uL (1.8-7.7); Neutrophils % 69.8 %; Nucleated Red Blood Cells % 0 %; Platelet Count 171 10^3/cmm (130-400); Red Blood Count 3.52 10^6/uL (4.1-5.3); Red Cell Distribution Width 14.1 % (12.1-15.1); White Blood Count 11.4 10^3/uL (4.0-10.0)
[2021-11-02] MEDS: prenatal vitamin Capsule 1 CAP PO (09:48)
[2021-11-02] MEDS: ferrous sulfate EC 325 mg Tablet PO (09:48)
[2021-11-02] MEDS: ibuprofen 800 mg tablet PO (09:48)
[2021-11-02] MEDS: metroNIDAZOLE 500 MG Tablet PO (09:48)
[2021-11-02] MEDS: docusate sodium 100 mg Capsule PO (09:48)
[2021-11-02 09:50] VITALS: BP 120/64; PULSE 82; RESP 16; TEMP 36.8; O2SAT 98
--- NOTE | 2021-11-02 12:23 | P.DS_ITS ---
Discharge Providers Date of Admission: 10/31/21 23:40 Date of Discharge: November 02, 2021 Attending Provider at Admission: Stacie Pagan MD Attending Provider at Discharge: Stacie Pagan MD Diagnoses at Discharge Discharge Diagnosis (1) Previous delivery affecting : Status: Acute (2) Late care: Status: Acute (3) Tobacco use: Status: Acute (4) GBS (group B streptococcus) UTI complicating : Status: Acute (5) Maternal varicella, non-immune: Status: Acute (6) Supervision of normal : Status: Acute (7) IUGR (intrauterine growth restriction): Status: Acute Reason for Visit Reason for Visit: Hospital Course Hospital Course The patient was admitted in active labor. she desired a repeat . She had surgery. she did well and was ready for discharge in the evening on POD#1 Physical Exam Narrative: EXAM NARRATIVE: The patient is doing well. She has no concerns today Const: COMMON NORMALS: no acute distress, average body habitus, patient oriented x3, no limitations, healthy appearing, alert and well nourished GENERAL APPEARANCE: cooperative, comfortable, well kempt and well developed ORIENTATION/CONSCIOUSNESS: Yes awake, Yes oriented to person, Yes oriented to place and Yes oriented to time Resp: COMMON NORMALS: normal respiratory effort EFFORT & INSPECTION: Yes able to speak in complete sentences GI: COMMON NORMALS: Soft to palpation and non-tender PALPATION: Yes Soft to palpation Extremity: COMMON NORMALS: no calf tenderness Neuro: COMMON NORMALS: patient oriented x3 SENSORIUM/ORIENTATION: Yes alert, Yes oriented to person, Yes oriented to place and Yes oriented to time Psych: COMMON NORMALS: mental status grossly normal, Normal thought process present, cooperative, normal affect and speech normal APPEARANCE: Yes grossly normal and Yes well kempt ATTITUDE: Yes calm and Yes engaged ACTIVITY/MOTOR BEHAVIOR: Yes appropriate eye contact SPEECH: Yes normal speech THOUGHT PROCESS: Normal thought process present Urinary Catheter Management^: Lockhart Latex: Cath Placed During This Visit: yes, but has since been removed by the nurse Reason for Continuing Indwelling Catheter: Other Urinary Catheter Date of Insertion: 11/01/21 Urinary Catheter Time of Insertion: 00:06 Date Urinary Catheter Removed: 11/01/21 Time Urinary Catheter Discontinued: 08:50 Discharge Data Data Completed and Pending: Labs from last 24 hours 11/02/21 11/01/21 04:20 12:55 WBC 11.4 H 11.9 H RBC 3.52 L 3.88 L Hgb 9.0 L 10.1 L Hct 28.4 L 31.3 L MCV 80.7 L 80.7 L MCH 25.6 L 26.0 L MCHC 31.7 32.3 RDW 14.1 13.8 Plt Count 171 169 MPV 10.7 H 10.7 H Neut % (Auto) 69.8 Lymph % (Auto) 21.6 [place] % (Auto) 6.4 Eos % (Auto) 1.1 Baso % (Auto) 0.3 Neut # (Auto) 7.96 H Lymph # (Auto) 2.5 [place] # (Auto) 0.7 Eos # (Auto) 0.1 Baso # (Auto) 0.0 Nucleated RBC % (a uto) 0 Nucleated RBCs # 0.0 Vitals: Last Vital Signs Temp 98.2 F 11/02/21 09:50 Pulse 82 11/02/21 09:50 Resp 16 11/02/21 09:50 BP 120/64 11/02/21 09:50 Pulse Ox 98 11/02/21 09:50 Discharge Plan Discharge Patient Disposition: Home Condition: Stable Prescriptions: New ibuprofen 800 mg Tablet 800 mg PO TID Qty: 40 RF: 0 hydrocodone-acetaminophen 5-325 mg Tablet 1 - 2 tab PO Q4H PRN (Reason: Moderate To Severe Pain) Qty: 30 RF: 0 docusate sodium 100 mg Capsule 100 mg PO BID Qty: 60 RF: 0 ferrous sulfate 325 mg (65 mg iron) Tablet,Delayed Release (Dr/Ec) 325 mg PO BIDWM Qty: 60 RF: 3 Continued Gummies 400 mcg-35 mg- 25 mg-5 mg tablet,chewable 2 tab PO DAILY RF: 0 Discharge Orders: Discharge Order (Routine); Ordered 11/02/21 Ordered By: Stacie Pagan Patient Instructions: Depression (DC), Bleeding (DC), Preeclampsia and Eclampsia After Delivery (GEN), OB WHC, OB Discharge Report, OB Food/Drug Interaction Guide, Opioid Safety, OB Home Care, OB Proud Parent Packet Discharge Attestations Time Spent in Discharge Care*: less than 30 min Quality Metrics Clinical Quality Measures During this hospital stay, did patient experience: None Coding Level of Care Code Acute Chg FW DC note Diagnoses Previous delivery affecting O34.219 Late care O09.30 Tobacco use Z72.0 GBS (group B streptococcus) UTI complicating O23.40; B95.1 Maternal varicella, non-immune O09.899; Z28.3 Supervision of normal Z34.90 IUGR (intrauterine growth restriction)
[2021-11-02 15:50] VITALS: BP 128/81; PULSE 80; RESP 16; TEMP 36.8; O2SAT 97
== END 2021-11-02 16:05 | disposition home or self-care (01) | DRG 786 ==
LOC: OPOB 11-01 00:02 → OBGYN 11-01 00:02
PROVIDERS: Admitting Provider Obstetrics & Gynecology; Visit Provider Obstetrics & Gynecology
PROC: 10D00Z1 Extraction of Products of Conception, Low, Open Approach (ICD-10-PCS; CPT 59514; principal; 2021-11-01 00:35)
DX: O34.219 Maternal care for unspecified type scar from previous cesarean delivery (principal); O75.3 Other infection during labor; N39.0 Urinary tract infection, site not specified; B95.1 Streptococcus, group B, as the cause of diseases classified elsewhere; O99.334 Smoking (tobacco) complicating childbirth; F17.210 Nicotine dependence, cigarettes, uncomplicated; O36.5930 Maternal care for other known or suspected poor fetal growth, third trimester, not applicable or unspecified; Z28.3 Underimmunization status; Z3A.38 38 weeks gestation of pregnancy; Z37.0 Single live birth
CPT/HCPCS: 36415; 51702; 59025; 80048; 80306; 83986; 84112; 85025; 85027; 96372; 99211; J0290; J0690; J0696; J1885; J2210; J2250; J2274; J2765; J3490; S0030

== ENCOUNTER → 2021-11-20 15:48 | Outpatient (BNVA) | payer MEDICAID, SELFPAY | PROVIDERS: Visit Provider Obstetrics & Gynecology | DX: O86.02 Infection of obstetric surgical wound, deep incisional site (principal); Z98.890 Other specified postprocedural states | CPT/HCPCS: 87070; 87075; 87077; 87184; 87205 ==

== ENCOUNTER → 2022-05-14 15:16 | Outpatient (BNVA) | payer MEDICAID, SELFPAY | PROVIDERS: Visit Provider Obstetrics & Gynecology | DX: N92.6 Irregular menstruation, unspecified (principal) | CPT/HCPCS: 84702 ==

== ENCOUNTER → 2022-06-15 14:27 | Outpatient (BNVA) | payer MEDICAID, SELFPAY | PROVIDERS: Visit Provider Obstetrics & Gynecology | DX: Z34.90 Encounter for supervision of normal pregnancy, unspecified, unspecified trimester (principal) | CPT/HCPCS: 80307; 81000; 84443; 85025; 86592; 86762; 86803; 86850; 86900; 87086; 87340; 87491; 87591; 87661; 87806 ==

== ENCOUNTER → 2022-06-20 09:25 | Outpatient (BNVA) | payer MEDICAID, SELFPAY | PROVIDERS: Visit Provider Obstetrics & Gynecology | DX: Z34.90 Encounter for supervision of normal pregnancy, unspecified, unspecified trimester (principal) | CPT/HCPCS: 81000 ==

== ENCOUNTER → 2022-07-20 09:13 | Outpatient (BNVA) | payer MEDICAID, SELFPAY | PROVIDERS: Visit Provider Obstetrics & Gynecology | DX: Z34.90 Encounter for supervision of normal pregnancy, unspecified, unspecified trimester (principal) | CPT/HCPCS: 81000 ==

== ENCOUNTER → 2022-08-01 10:11 | Outpatient (BNVA) | payer MEDICAID, SELFPAY | PROVIDERS: Visit Provider Obstetrics & Gynecology | DX: Z34.90 Encounter for supervision of normal pregnancy, unspecified, unspecified trimester (principal) | CPT/HCPCS: 81000; 82950; 85025 ==

== ENCOUNTER → 2022-09-21 08:28 | Outpatient (BNVA) | payer MEDICAID, SELFPAY | PROVIDERS: Visit Provider Obstetrics & Gynecology | DX: Z34.90 Encounter for supervision of normal pregnancy, unspecified, unspecified trimester (principal) | CPT/HCPCS: 81000; 87086 ==

== ENCOUNTER 2022-09-25 05:20 | Inpatient (IN) | payer MEDICAID, SELFPAY ==
[2022-09-25] VITALS (35 sets, daily range): BP systolic 97–125; BP diastolic 49–75; PULSE 51–98; RESP 15–17; TEMP 35.7–36.3; O2SAT 98–99; BMI 33.2
[2022-09-25 06:03] LABS: Basophils % 0.5 %; Eosinophils % 0.5 %; Hematocrit 33.4 % (37.0-47.0); Hemoglobin 10.7 g/dL (11.5-15.3); Lymphocytes # 1.9 10^3/uL (0.8-4.8); Lymphocytes % 33.8 %; Mean Corpuscular Hemoglobin 26.7 pg (28.0-34.0); Mean Corpuscular Volume 83.3 fl (81-99); Mean Platelet Volume 10.3 fL (7.4-10.4); Monocytes % 17.6 %; Neutrophils # 2.63 10^3/uL (1.8-7.7); Neutrophils % 47.2 %; Nucleated Red Blood Cells % 0 %; Platelet Count 304 10^3/cmm (130-400); Red Blood Count 4.01 10^6/uL (4.1-5.3); Red Cell Distribution Width 13.5 % (12.1-15.1); White Blood Count 5.6 10^3/uL (4.0-10.0)
[2022-09-25 06:12] LABS: Amphetamines Screen Urine Negative (Negative); Barbiturates Screen Urine Negative (Negative); Benzodiazepines Screen Urine Negative (Negative); Cocaine Screen Urine Negative (Negative); Opiate Screen Urine Negative (Negative); PCP Screen Urine Negative (Negative); THC Screen Urine Positive (Negative)
[2022-09-25] MEDS: lactated ringers 1,000 ML 125 ML IV (08:44)
--- NOTE | 2022-09-25 08:50 | ANES.PREANE2 ---
Pre-Anesthetic Assessment Height/Weight: Height 1.68 m Weight 93.44 kg Pulse Resp BP O2 Del Method 72 16 107/61 09/25/22 06:20 09/25/22 05:58 09/25/22 06:20 09/25/22 06:01 Preop Diagnosis: @ 38w3d, active labor, SROM Operation Date: 09/25/22 07:00 Proposed Procedures p Repeat section 40430, bilateral tubal ligation 73191(Bilateral) - Stacie Pagan MD Was Beta Erica taken within 24 hours: N/A Was Clonidine taken within 24 hours: N/A Social No alcohol and No tobacco Exam alert, oriented x 3, clear to auscultation bilaterally and regular rate & rhythm Airway Submandibular: within normal limits Cervical ROM: within normal limits Mallampati: Class II Dentition: chipped History/ROS No significant history except as noted and No significant complaints Pulmonary None reported CV/HEM None reported None reported Hepatic None reported GI Gastroesophageal Reflux Disease Metabolic None reported Musc/skel None reported Neuropsych None reported Anesthetic Plan ASA status: 2 Anesthesia: Anesthesia Evaluation and Regional (specify below) Risk of > 500 ml blood loss (7ml/kg in children): No Medications/Allergies Home Medications Medication Instructions Recorded Confirmed Last Taken Type hydroxyzine pamoate 50 mg capsule 50 mg PO BID #60 caps 08/31/22 09/21/22 Unknown Rx (Vistaril) sertraline 25 mg tablet (Zoloft) 25 mg PO DAILY #90 tabs 08/31/22 09/21/22 Unknown Rx Allergies Allergy/AdvReac Type Severity Reaction Status Date / Time No Known Allergies Allergy Verified 09/21/22 10:10 Current Medications Generic Name Dose Route Start Last Admin Trade Name Freq PRN Reason Stop Dose Admin Lactated Ringer's 1,000 mls @ 125 mls/hr 09/25/22 06:00 09/25/22 08:44 Lactated Ringers IV 125 mls/hr .Q8H ANITA Administration PFSH Anesthesia Medical History Anxiety Depression Surgical History History of 04/03/2020 Family History Family/Other Trisomy 13 Great Aunt Grandmother Hypertension Maternal Grandfather Cancer Maternal--skin and lung Denies family history of Diabetes CAD (coronary artery disease) Clotting disorder Hyperlipidemia Chronic kidney disease (CKD) Bleeding disorder Thyroid disease Stroke Female Reproductive History : 4 Data Anesthesia 09/25/22 05:35 Short CBC 09/25/22 Range/Units 05:35 WBC 5.6 (4.0-10.0) 10^3/uL Hgb 10.7 L (11.5-15.3) g/dL Hct 33.4 L (37.0-47.0) % MCV 83.3 (81-99) fl Plt Count 304 (130-400) 10^3/cmm Neut % (Auto) 47.2 % Neut # (Auto) 2.63 (1.8-7.7) 10^3/uL Blood Bank 09/25/22 05:35 Blood Type A Positive Rho(D) Type Positive Cardiac Studies: No Data to Display
[2022-09-25] MEDS: famotidine 20 mg/2 mL INJ IVP (09:44)
[2022-09-25] MEDS: metoclopramide 5 mg/mL SDV 2 mL 10 MG IVP (09:44)
[2022-09-25] MEDS: citric acid-sodium citrate 30 mL UDC PO (09:44)
[2022-09-25] MEDS: ceFAZolin 2,000 MG in sodium chloride 0.9% (plus) 50 ML 100 MG IV (09:45)
--- NOTE | 2022-09-25 09:54 | PC.NURSE ---
[facility] with [facility] called to this RN 1 week follow up appointment on 10/04/22 @1315 and 6 week pp appointment on 11/08/2022 @ 1045. Both appointments put in discharge plan by this RN. RAMANA ALFREDO
[2022-09-25] MEDS: lactated ringers 1,000 ML 999 ML IV (10:00)
--- NOTE | 2022-09-25 10:10 | W.PM.OPSUD ---
Surgery/Procedure H&P Update DATE OF PROCEDURE: September 25, 2022 DATE H&P PERFORMED: 09/21/22 H&P UPDATE INFORMATION: I have reviewed H&P completed within last 30 days, I have examined patient prior to procedure and No changes to prior documentation PREOP DIAGNOSIS: @37w6d, IUGR,tobacco abuse,previous X3, desires sterilization PLANNED PROCEDURE: Operation Date: 09/25/22 07:00 Proposed Procedures p Repeat section 11745, bilateral tubal ligation 22720(Bilateral) - Stacie Pagan MD
--- NOTE | 2022-09-25 12:13 | P.OP_ITS ---
Operative Report Date of procedure: September 25, 2022 Pre-op diagnosis: Preop Diagnosis @37w6d, IUGR,tobacco abuse,previous X3, desires sterilization Post-op diagnosis: same Post-op findings: small term male , normal appearing uterus, tubes and ovaries Procedure done: Repeat with bilateral salpingectomy Specimens removed/disposition: bilateral fallopian tubes to pathology Surgeon: Stacie Pagan Anesthesia: Other (spinal) Estimated blood loss (mL): 200 IV fluids (mL): 1,800 Urine output (mL): 250 Complications: none Findings: term male in the cephalic presentation Condition: stable Disposition: PACU Procedure: The patient was taken to the operating room where spinal anesthesia was administered and found to be adequate. She was prepped and draped in the normal sterile fashion in the dorsal supine position with a leftward tilt. A Pfannenstiel skin incision was made and carried down to the underlying layer of fascia. The fascia was nicked in the midline and extended laterally with the Miller scissors. The fascia was then tented up and the rectus muscles dissected off sharply. The rectus muscles were and the peritoneum entered bluntly with the digit. The peritoneal incision was extended superiorly and inferiorly with good visualization of the bladder. The Jg O retractor was placed. It was clear of any bowel or omentum. The bladder flap was created sharply with the Metzenbaum scissors. A low transverse uterine incision was made and carried down to the bag of water. The bag of water was ruptured and the uterine incision extended cephalocaudad. The scalp was grasped and brought through the incision. The nose and mouth were bulb suctioned. The shoulders and body delivered atraumatically. The baby was allowed to rest, while being dried, for 1 minute and then the cord was clamped and cut. The baby was handed to the waiting vision specialist. The placenta was delivered by expressio n. The uterus was exteriorized and cleared of all clots and debris. The uterine incision was closed with 0 Vicryl in a running fashion. A second imbricating layer of 3-0 Monocryl was used to close the uterus. The bladder flap was closed with 3-0 Monocryl. There was excellent hemostasis. Attention was then turned to the salpingectomy portion of the procedure. The left fallopian tube was grasped with an allis clamp and elevated. Using a cautery device and starting at the cornua, the mesosalpinx was cauterized and divided down to the the fimbria of the fallopian tube. The entire tube was removed. There was excellent hemostasis. The right tube was removed in the same manner. There was excellent hemostasis. The Jg O retractor was removed. The uterus was returned to the abdomen. The peritoneum was closed with 3-0 Monocryl, incorporating the rectus muscle. The fascia was closed with 0 Vicryl in 2 separate sutures overlapping in the midline. The skin was closed with absorbable angelique. Apgars on baby 9 at 1 minute and 9 at 5 minutes. weight pending. Mother and baby were stable post delivery.
[2022-09-25] MEDS: diphenhydrAMINE 50 mg/mL SDV 1mL 25 MG IVP (14:18)
[2022-09-25] MEDS: dextrose 5%-lactated ringers 1,000 ML 125 ML IV (14:19)
--- NOTE | 2022-09-25 16:40 | ANE.PACU2 ---
Inpatient post-anesthesia follow up: Airway intact: Yes Vital signs: Temperature 97.3 F Pulse Rate 75 Respiratory Rate 16 Blood Pressure 107/61 Pulse Oximetry 99 Oxygen Delivery Me thod Room Air Oxygen Flow Rate Fraction of Inspir ed Oxygen Hydration adequate: Yes Nausea and vomiting: No Pain level: 3 Mental status: Baseline
[2022-09-25] MEDS: docusate sodium 100 mg Capsule PO (17:34)
[2022-09-25] MEDS: ketorolac 30 mg/mL INJ IVP ×2 (17:34→23:10)
[2022-09-25] MEDS: oxyCODONE-APAP 5-325 mg Tablet PO ×2 (18:24→23:11)
[2022-09-26] VITALS (61 sets, daily range): BP systolic 106–129; BP diastolic 53–74; PULSE 60–99; RESP 16–18; TEMP 35.7–36.3; O2SAT 93–99
[2022-09-26 03:02] LABS: Hematocrit 27.8 % (37.0-47.0); Hemoglobin 8.9 g/dL (11.5-15.3); Mean Corpuscular Hemoglobin 26.5 pg (28.0-34.0); Mean Corpuscular Volume 82.7 fl (81-99); Mean Platelet Volume 10.2 fL (7.4-10.4); Platelet Count 240 10^3/cmm (130-400); Red Blood Count 3.36 10^6/uL (4.1-5.3); Red Cell Distribution Width 13.3 % (12.1-15.1); White Blood Count 5.2 10^3/uL (4.0-10.0)
[2022-09-26] MEDS: ketorolac 30 mg/mL INJ IVP (05:12)
[2022-09-26] MEDS: simethicone 80 mg Chew PO (09:52)
[2022-09-26] MEDS: oxyCODONE-APAP 5-325 mg Tablet PO ×4 (09:52→23:44)
[2022-09-26] MEDS: prenatal vitamin Capsule 1 CAP PO (09:53)
[2022-09-26] MEDS: docusate sodium 100 mg Capsule PO ×2 (09:53→22:24)
[2022-09-26] MEDS: ferrous sulfate EC 325 mg Tablet PO (09:53)
--- NOTE | 2022-09-26 13:00 | XR_ITS ---
WS: [id number] EXAMINATION: XR chest 1V portable [id number] REASON FOR EXAM: rubbing lung sounds COMPARISON: None available. ORDER DATE: 09/26/2022 1:16 PM TECHNIQUE: A single, portable frontal chest x-ray was obtained. X-RAY FINDINGS: The lungs are clear. Pleural spaces are clear. No pleural effusions or pneumothorax. Cardiomediastinal silhouette is normal. No evidence for pulmonary edema. Soft tissue and osseous structures are unremarkable. No tubes or lines are present. XR/XR chest 1V portable [id number] IMPRESSION: Unremarkable frontal portable chest x-ray.
[2022-09-26 15:21] LABS: Basophils % 0.4 %; Eosinophils # 0.1 10^3/uL (0.0-0.8); Hematocrit 31.4 % (37.0-47.0); Hemoglobin 9.8 g/dL (11.5-15.3); Lymphocytes # 2.3 10^3/uL (0.8-4.8); Lymphocytes % 46.2 %; Mean Corpuscular HGB Conc 31.2 g/dL (30.0-36.0); Mean Corpuscular Hemoglobin 26.3 pg (28.0-34.0); Mean Corpuscular Volume 84.4 fl (81-99); Mean Platelet Volume 10.2 fL (7.4-10.4); Monocytes # 0.9 10^3/uL (0.2-0.9); Monocytes % 18.3 %; Neutrophils # 1.65 10^3/uL (1.8-7.7); Neutrophils % 33.3 %; Nucleated Red Blood Cells % 0 %; Platelet Count 262 10^3/cmm (130-400); Red Blood Count 3.72 10^6/uL (4.1-5.3); Red Cell Distribution Width 13.5 % (12.1-15.1)
[2022-09-26 15:35] LABS: Slide Review Slide Review Perform
--- NOTE | 2022-09-26 15:43 | PM.PN ---
Vitals/I&O/Wt Last Vital Signs Temp 96.3 F L 09/26/22 11:33 Pulse 86 09/26/22 14:50 Resp 17 09/26/22 09:52 BP 122/61 09/26/22 14:50 Pulse Ox 99 09/26/22 13:29 O2 Del Method 09/25/22 12:10 09/26/22 09/26/22 09/26/22 06:59 14:59 22:59 Intake Total 2000 / 3800 Output Total 1200 / 2750 Balance 800 / 1050 Weight last 48 hrs Weight 206 lb Physical Exam Narrative: The patient is doing ok this morning. She was anemic prior to surgery. She didn't loose too much blood during surgery. Her hgb is 8.9 today. She is tolerating a regular diet. She has not really ambulated yet. She just had her catheter removed. Const: COMMON NORMALS: no acute distress, patient oriented x3, no limitations, healthy appearing, alert and well nourished GENERAL APPEARANCE: cooperative, comfortable, well kempt and well developed ORIENTATION/CONSCIOUSNESS: Yes awake, Yes oriented to person, Yes oriented to place and Yes oriented to time Resp: COMMON NORMALS: normal respiratory effort EFFORT & INSPECTION: Yes able to speak in complete sentences GI: COMMON NORMALS: Soft to palpation and non-tender INSPECTION: Yes abdominal wall ecchymosis (a round area on the right upper quadrant. 8-10 inches from incision) PALPATION: Yes Soft to palpation Extremity: COMMON NORMALS: no calf tenderness Neuro: COMMON NORMALS: patient oriented x3 SENSORIUM/ORIENTATION: Yes alert, Yes oriented to person, Yes oriented to place and Yes oriented to time Psych: APPEARANCE: Yes well kempt Urinary Catheter Management: Redd: Cath Placed During This Visit: yes, but has since been removed by the nurse Reason for Continuing Indwelling Catheter: Decision to DC Catheter Urinary Catheter Date of Insertion: 09/25/22 Urinary Catheter Time of Insertion: 10:20 Date Urinary Catheter Removed: 09/26/22 Time Urinary Catheter Discontinued: 05:15 Data 09/26/22 15:14 A&P Assessment and plan (1) Previous delivery affecting : encourage ambulation continue to control pain New ecchymosis to RUQ. Not associated or near incision. The patient reports that it is new and getting slightly larger. The nurses have marked the area. She denies having any trauma to the area yesterday or today. She has not been out of bed since redd was removed. No known etiology. Continue to watch nicotine patch ordered. routine postop/ care. Attestations Medical Necessity Statement*: The patient will be here 2 midnights. She had a repeat with tubal. Coding Level of Care Code Acute Title Search Manager for Chg Fwd Diagnoses Previous delivery affecting O34.219
[2022-09-26] MEDS: nicotine 14 mg Patch 1 PATCH TRANSDERMA (18:48)
--- NOTE | 2022-09-26 19:58 | PC.NURSE ---
bruising noted on pt right side of abdomen, previous nurse outlined bruising. This nurse noted bruising that extended past previous outline this nurse outlined newest bruising and sign and dated it, aware and no new orders, this nurse showed on coming RN the bruising and what this nurse has outlined. no further bruising noted. made aware of brusing at 0800 no new orders given.
[2022-09-27] VITALS (7 sets, daily range): BP systolic 119–135; BP diastolic 64–79; PULSE 83–88; RESP 16–18; TEMP 36.1–37.3
[2022-09-27] MEDS: oxyCODONE-APAP 5-325 mg Tablet PO ×2 (04:53→09:49)
[2022-09-27] MEDS: docusate sodium 100 mg Capsule PO (08:42)
[2022-09-27] MEDS: ferrous sulfate EC 325 mg Tablet PO (08:42)
[2022-09-27] MEDS: prenatal vitamin Capsule 1 CAP PO (08:42)
--- NOTE | 2022-09-27 09:55 | P.DS_ITS ---
Discharge Providers Date of Admission: 09/25/22 05:20 Date of Discharge: September 27, 2022 Attending Provider at Admission: Stacie Pagan MD Attending Provider at Discharge: Stacie Pagan MD Diagnoses at Discharge Discharge Diagnosis (1) Previous delivery affecting : Status: Acute Reason for Visit Reason for Visit: [employer] Hospital Course Hospital Course The patient was admitted for repeat with tubal ligation. She did well postoperatively. She had a mysterious bruise appear on her left abdomen, about the level of her umbilicus. It enlarged slightly during her stay. She denied any trauma to the area. It was not associated with her surgical area at all. Her hemoglobin was stable. She also had several panic attacks during her stay. Those seemed to subside with placement of a nicotine patch. Otherwise, she had no postop issues. She was ready for discharge on day #2 Physical Exam Narrative: The patient is up and ambulating today. She has no concerns. She is requesting discharge home. Const: COMMON NORMALS: no acute distress, patient oriented x3, no limitations, healthy appearing, alert and well nourished Resp: COMMON NORMALS: normal respiratory effort EFFORT & INSPECTION: Yes able to speak in complete sentences GI: COMMON NORMALS: Soft to palpation and non-tender PALPATION: Yes Soft to palpation Extremity: COMMON NORMALS: no calf tenderness Neuro: COMMON NORMALS: patient oriented x3 SENSORIUM/ORIENTATION: Yes alert Psych: COMMON NORMALS: mental status grossly normal, Normal thought process present, cooperative, normal affect and speech normal SPEECH: Yes normal speech THOUGHT PROCESS: Normal thought process present Skin: WOUNDS: Yes surgical site (clean/dry/intact) Urinary Catheter Management: [place]: Cath Placed During This Visit: yes, but has since been removed by the nurse Reason for Continuing Indwelling Catheter: Decision to DC Catheter Urinary Catheter Date of Insertion: 09/25/22 Urinary Catheter Time of Insertion: 10:20 Date Urinary Catheter Removed: 09/26/22 Time Urinary Catheter Discontinued: 05:15 Discharge Data Studies Completed and Pending Completed Studies During Hospitalization Category Date Time Status XR chest 1V portable [id number] Stat Exams 09/26/22 13:00 Completed Radiology Impressions Chest X-Ray 09/26/22 13:00 IMPRESSION: Unremarkable frontal portable chest x-ray. Laboratory Results WBC 5.0 10^3/uL (4.0-10.0) 09/26/22 15:14 RBC 3.72 10^6/uL (4.1-5.3) L 09/26/22 15:14 Hgb 9.8 g/dL (11.5-15.3) L 09/26/22 15:14 Hct 31.4 % (37.0-47.0) L 09/26/22 15:14 MCV 84.4 fl (81-99) 09/26/22 15:14 MCH 26.3 pg (28.0-34.0) L 09/26/22 15:14 MCHC 31.2 g/dL (30.0-36.0) 09/26/22 15:14 RDW 13.5 % (12.1-15.1) 09/26/22 15:14 Plt Count 262 10^3/cmm (130-400) 09/26/22 15:14 MPV 10.2 fL (7.4-10.4) 09/26/22 15:14 Neut % (Auto) 33.3 % 09/26/22 15:14 Lymph % (Auto) 46.2 % 09/26/22 15:14 Kaufman % (Auto) 18.3 % 09/26/22 15:14 Eos % (Auto) 1.0 % 09/26/22 15:14 Baso % (Auto) 0.4 % 09/26/22 15:14 Neut # (Auto) 1.65 10^3/uL (1.8-7.7) L 09/26/22 15:14 Lymph # (Auto) 2.3 10^3/uL (0.8-4.8) 09/26/22 15:14 Kaufman # (Auto) 0.9 10^3/uL (0.2-0.9) 09/26/22 15:14 Eos # (Auto) 0.1 10^3/uL (0.0-0.8) 09/26/22 15:14 Baso # (Auto) 0.0 10^3/uL (0.0-0.1) 09/26/22 15:14 Nucleated RBC % (auto) 0 % 09/26/22 15:14 Nucleated RBCs # 0.0 /100WBC 09/26/22 15:14 Urine Opiates Screen Negative ng/mL (Negative) 09/25/22 05:35 Ur Barbiturates Screen Negative ng/mL (Negative) 09/25/22 05:35 Ur Phencyclidine Scrn Negative ng/mL (Negative) 09/25/22 05:35 Ur Amphetamines Screen Negative ng/mL (Negative) 09/25/22 05:35 U Benzodiazepines Scrn Negative ng/mL (Negative) 09/25/22 05:35 Urine Cocaine Screen Negative ng/mL (Negative) 09/25/22 05:35 U Marijuana (THC) Screen Positive ng/mL (Negative) H 09/25/22 05:35 Blood Type A Positive 09/25/22 05:35 Rho(D) Type Positive 09/25/22 05:35 Antibody Screen Negative 09/25/22 05:35 Vitals Last Vital Signs Temp 97.0 F L 09/27/22 06:02 Pulse 88 09/27/22 06:03 Resp 18 09/27/22 09:49 BP 119/64 09/27/22 06:03 Pulse Ox 99 09/26/22 13:29 O2 Del Method 09/26/22 18:50 Discharge Plan Discharge Patient Disposition: Home Condition: Stable Prescriptions: New oxycodone-acetaminophen 5-325 mg Tablet 1 tab PO Q4H PRN (Reason: Moderate To Severe Pain) Qty: 30 0RF docusate sodium 100 mg Capsule 100 mg PO BID Qty: 60 0RF ferrous sulfate 325 mg (65 mg iron) Tablet,Delayed Release (Dr/Ec) 325 mg PO BIDWM Qty: 60 0RF Continued hydroxyzine pamoate [Vistaril] 50 mg capsule 50 mg PO BID Qty: 60 5RF sertraline [Zoloft] 25 mg tablet 25 mg PO DAILY Qty: 90 5RF Discharge Orders: Discharge Order (Routine); Ordered 09/27/22 Ordered By: Stacie Pagan Referrals: Stacie Pagan MD [Physician] - 10/04/22 1:15 pm (6 week follow up scheduled for 11/08/2022 @ [id number]) Patient Instructions: Iron Supplements (By mouth), Oxycodone/Acetaminophen (By mouth), Laxative, Stool Softeners (By mouth), Depression (GEN), Preeclampsia and Eclampsia After Delivery (GEN), Hemorrhage (GEN), OB [facility], OB Food/Drug Interaction Guide, OB Care at Home, Opioid Safety, OB Home Care, Abnormal Bleeding Activity Restrictions/Additional Instructions: 1 week follow up scheduled for 10/04/2022 @ 1:15 pm, 6 week visit scheduled on 11/08/2022 at 1045 Discharge Attestations Time Spent in Discharge Care*: less than 30 min Quality Metrics Clinical Quality Measures [ No reported AMI, CVA or VTE this stay] Coding Level of Care Code Acute Chg DC note Diagnoses Previous delivery affecting O34.219
== END 2022-09-27 10:30 | disposition home or self-care (01) | DRG 785 ==
PROVIDERS: Admitting Provider Obstetrics & Gynecology; Visit Provider Obstetrics & Gynecology
PROC: 10D00Z1 Extraction of Products of Conception, Low, Open Approach (ICD-10-PCS; CPT 59514; principal; 2022-09-25 07:00)
DX: O34.219 Maternal care for unspecified type scar from previous cesarean delivery (principal); O36.5930 Maternal care for other known or suspected poor fetal growth, third trimester, not applicable or unspecified; O99.334 Smoking (tobacco) complicating childbirth; F17.200 Nicotine dependence, unspecified, uncomplicated; O99.344 Other mental disorders complicating childbirth; F41.0 Panic disorder [episodic paroxysmal anxiety]; O99.02 Anemia complicating childbirth; D64.9 Anemia, unspecified; O90.89 Other complications of the puerperium, not elsewhere classified; R58 Hemorrhage, not elsewhere classified; Z30.2 Encounter for sterilization; Z3A.37 37 weeks gestation of pregnancy; Z37.0 Single live birth
CPT/HCPCS: 36415; 51702; 59025; 59409; 71045; 80306; 85025; 85027; 86850; 86900; 88302; 96374; 96376; J0690; J1100; J1200; J1885; J2250; J2274; J2405; J2590; J2765; J3010; J3490; J7120; J7121